=== PATIENT | female | born 1990 | race Caucasian/White ===

== ENCOUNTER → 2016-04-29 | Outpatient (CLI) | payer BC, OTHER | END | disposition home or self-care (01) | LOC: LABWHC1 11:44 | PROVIDERS: ATTEND Obstetrics & Gynecology | DX: Z34.80 Encounter for supervision of other normal pregnancy, unspecified trimester (principal); Z3A.00 Weeks of gestation of pregnancy not specified | CPT/HCPCS: 36415; 84702 ==

== ENCOUNTER → 2016-05-01 | Outpatient (CLI) | payer BC, OTHER | END | disposition home or self-care (01) | LOC: LABWHC1 12:54 | PROVIDERS: ATTEND Obstetrics & Gynecology | DX: Z34.90 Encounter for supervision of normal pregnancy, unspecified, unspecified trimester (principal); Z3A.00 Weeks of gestation of pregnancy not specified | CPT/HCPCS: 36415; 84702 ==

== ENCOUNTER → 2016-05-12 | Outpatient (CLI) | payer BC, OTHER ==
--- NOTE | 2016-05-12 15:50 | US ---
EXAMINATION TYPE: US OB <=14 wks transvag DATE OF EXAM: 05/12/2016 3:34 PM COMPARISON: NONE CLINICAL HISTORY: Z36 CONFIRM DATES. EXAM PERFORMED: Transvaginal (TV) and Transabdominal (TA) EXAM MEASUREMENTS: GESTATIONAL AGE / DATING Physician Established: Not established Dates by LMP: ( 8 weeks/0 days) EDC: 12/22/2016 Dates by First Scan: (today Dates by Current Scan for: ( 7 weeks/4 days) EDC: 12/25/2016 MATERNAL ANATOMY Uterus: 11.6 x 5.8 x 5.8cm Right Ovary: 3.5 x 3.3 x 2.6cm Left Ovary: 2.9 x 2.4 x 2.1cm Post CDS / Adnexa: wnl Presence of free fluid: no Presence of corpus luteal cyst: in right ovary = 2.2 x 2.4 x 1.4cm Presence of subchorionic bleed: complex area noted inferior subchorion = 1.2 x 1.9 x 0.5cm GESTATION / SURVEY CRL: 1.3cm (7 weeks/4 days) Yolk Sac (normal less than 6mm): 2.8mm Heart Rate: 151 bpm Rhythm: Normal IUP: Viable IUP Date of LMP: 03/17/2016 Beta HcG (if available): NA IMPRESSION: Single, live IUP, 7 weeks/4 days), EDC: 12/25/2016, HR 151bpm; possible JUHI inferior g estational sac.
[2016-05-12 16:13] LABS: CH 31.1; HCT 41.3 % (34.0-46.0); HDW 2.18; HGB 13.8 gm/dL (11.4-16.0); MCH 30.8 pg (25.0-35.0); MCHC 33.5 g/dL (31.0-37.0); MCV 91.8 fL (80.0-100.0); Mean Platelet Volume 7.4; RDW 12.1 % (11.5-15.5); WBC 15.3 k/uL (3.8-10.6)
[2016-05-12 16:19] LABS: Glucose 81 mg/dL (74-99); Non-African American GFR(MDRD) >60 (>60 ml/min/1.73 sqM)
[2016-05-12 16:50] LABS: Hepatitis B Surface Ag Index 0.09
[2016-05-13 03:56] LABS: Toxoplasma Antibody (IgG) <3.0 IU/mL (<7.2)
[2016-05-13 06:48] LABS: HIV-1/HIV-2 Ab Screen NONREAC (NON REAC)
== END | disposition home or self-care (01) ==
LOC: RADUSWWP 14:53
PROVIDERS: ATTEND Obstetrics & Gynecology
DX: Z36 Encounter for antenatal screening of mother (principal); Z3A.01 Less than 8 weeks gestation of pregnancy
CPT/HCPCS: 36415; 76801; 76817; 82565; 82947; 85027; 86762; 86777; 86778; 86780; 86850; 86900; 86901; 87340; 87389

== ENCOUNTER → 2016-08-05 | Outpatient (CLI) | payer OTHER ==
--- NOTE | 2016-08-05 14:28 | US ---
EXAMINATION TYPE: US OB anatomy transabd DATE OF EXAM: 08/05/2016 2:11 PM COMPARISON: First trimester ultrasound May 12, 2016. HISTORY: Z36 F/U to abnormal ultrasound in office TECHNIQUE: Transabdominal (TA) EXAM MEASUREMENTS: GESTATIONAL AGE / DATING Physician Established: (20 weeks/1 days) EDC: 12/22/2016 Dates by LMP: (20 weeks/1 days) EDC: 12/22/2016 Dates by First Scan: (19 weeks/5 days) EDC: 12/25/2016 Dates by Current Scan for: (19 weeks/6 days) EDC: 12/24/2016 SURVEY IUP: Single PLACENTA: Posterior PREVIA: No previa [place]: 14.3 cm Normal CERVICAL LENGTH (transabdominal: norm > 3.0cm): 4.9 cm BIOMETRY PRESENTATION: Vertex BPD: 4.5 cm 19 weeks / 4 days HC: 16.7 cm 19 weeks / 3 days AC: 15.3 cm 20 weeks / 4 days FL: 3.4 cm 20 weeks / 4 days ESTIMATED WEIGHT IN GRAMS: 350 grams ESTIMATED WEIGHT IN LBS/OZS: 0 lbs. 12 oz. WEIGHT PERCENTAGE BASED ON ESTABLISHED DATE: 59 % HC/AC: 1.1 Normal FL/AC: 22 Normal HEART RATE: 152 bpm RHYTHM: Normal ANATOMY SEEN (within normal limits): * Lateral Vent (< 1 cm) 0.7 cm * Cisterna Magna (< 1.1 cm) 0.4 cm * Nuchal Fold (< 0.6 cm) 0.3 cm * Cerebellum (varies with age) 1.9 cm Choroid Plexus (bilateral) Midline Falx Cavus Septi Pellucidi Four Chamber Heart Outflow tracts: LVOT/RVOT Stomach Situs Nose / Lips Diaphragm Kidneys (bilateral) Bladder Cord Insert Three Vessel Cord Longitudinal Spine Transverse Spine Arms (bilateral) Legs (bilateral) Single live intrauterine gestation is redemonstrated. Normal cephalad presentation to fetus is curren tly identified. there is no ultrasound evidence for placenta previa. Amniotic fluid index is within normal limits. biometry measurements are concordant felt within normal limits . Detailed anatom ical survey shows no suspicious abnormality during real-time scanning and still images saved IMPRESSION: As above.
== END | disposition home or self-care (01) ==
LOC: RADUSWWP 13:35
PROVIDERS: ATTEND Obstetrics & Gynecology
DX: Z36 Encounter for antenatal screening of mother (principal); Z3A.20 20 weeks gestation of pregnancy
CPT/HCPCS: 76811

== ENCOUNTER → 2016-10-17 | Outpatient (CLI) | payer BC, OTHER ==
[2016-10-17 13:19] LABS: CH 30.6; HDW 2.64; HGB 12.3 gm/dL (11.4-16.0); MCH 31.7 pg (25.0-35.0); MCHC 35.1 g/dL (31.0-37.0); MCV 90.4 fL (80.0-100.0); Mean Platelet Volume 6.9; RBC 3.87 m/uL (3.80-5.40); RDW 12.8 % (11.5-15.5); WBC 14.5 k/uL (3.8-10.6)
== END | disposition home or self-care (01) ==
LOC: LABWHC1 11:59
PROVIDERS: ATTEND Obstetrics & Gynecology
DX: Z34.82 Encounter for supervision of other normal pregnancy, second trimester (principal); Z3A.00 Weeks of gestation of pregnancy not specified
CPT/HCPCS: 36415; 82950; 85027

== ENCOUNTER → 2016-10-23 | Outpatient (CLI) | payer OTHER ==
[2016-10-23 12:05] LABS: Glucose 3 Hour, Gest 106 mg/dL
== END | disposition home or self-care (01) ==
LOC: LABWHC1 07:54
PROVIDERS: ATTEND Obstetrics & Gynecology
DX: O24.419 Gestational diabetes mellitus in pregnancy, unspecified control (principal); Z3A.00 Weeks of gestation of pregnancy not specified
CPT/HCPCS: 36415; 82951; 82952

== ENCOUNTER 2016-10-29 11:38 | Outpatient (CLI) | payer OTHER ==
[2016-10-29 11:46] VITALS: BP 113/63; PULSE 116; RESP 16; TEMP 97.9
--- NOTE | 2016-11-25 11:08 | P.MSEPDOC ---
Presenting Problems - Arrival Data Date of Arrival on Unit: 10/29/16 Time of Arrival on Unit: 11:35 Mode of Transport: Ambulatory - Complaint OB-Reason for Admission/Chief Complaint: Pain Comment: pelvic pain Medical History - Information : 3 Para: 2 Term: 2 : 0 Abortions: Spontaneous or Elective: 0 Number of Living Children: 2 - Gestational Age Expected Date of Delivery: 12/22/16 Gestational Age by ARJUN (wks/days): 36 Weeks and 1 Days - History Complications: Prior Review of Systems - Review of Systems Constitutional: No problems Breast: No problems ENT: No problems Cardiovascular: No problems Respiratory: No problems Gastrointestinal: No problems Genitourinary: No problems Musculoskeletal: No problems Neurological: No problems Skin: No problems Vital Signs - Temperature Temperature: 97.9 F Temperature Source: Oral - Pulse Right Sitting Brachial Pulse Rate: 116 Pulse Assessment Method: Automatic Cuff - Respirations Respiratory Rate: 16 Oxygen Delivery Method: Room Air O2 Sat by Pulse Oximetry: 97 - Blood Pressure Right Arm Sitting Blood Pressure: 113/63 Blood Pressure Mean: 79 Blood Pressure Source: Automatic Cuff Medical Screen Scoring (Pre) - Cervical Exam Dilation: Exam Deferred Effacement: Exam Deferred Membranes: Intact - Uterine Contractions Frequency: N/A Duration: N/A Intensity: N/A - Maternal Vital Signs Maternal Temperature: N/A Maternal Blood Pressure: N/A Signs of Preeclampsia: N/A Maternal Respirations: N/A - Maternal Trauma Maternal Trauma: N/A - Assessment Baseline FHR: 130 Heart Rate - NICHD Category: Category I (Normal) = 0 - Total Score Total Score (Pre): 0 - Level of Risk Level of Risk: Low (0-5) Medical Screen Scoring (Post) - Cervical Exam Dilation: 1-3 cm = 1 Membranes: Intact - Uterine Contractions Frequency: N/A - Total Score Total Score (Post): 1 Physician Notification (Post) - Physician Notified Physician Notified Date: 10/29/16 Physician Notified Time: 12:10 Physician/Practitioner Notified:: dr Watson Spoke With: dr Watson New Order Received: Yes - Notification Comment Comment: Discharge home. follow up with Dr Miles as scheduled. Disposition - Disposition OB Disposition: Discharge to home Discharge Date: 10/29/16 Discharge Time: 12:15 I agree with the RN Medical Screening Exam: Yes Risk & Benefit of care provided described in d/c instruction: Yes Diagnosis: FALSE LABOR BEFORE 37 COMPLETED WEEKS OF GEST, THIRD TRI
== END 2016-10-29 12:15 | disposition home or self-care (01) ==
LOC: FBPOP 11:38
PROVIDERS: ATTEND Obstetrics & Gynecology
DX: O47.03 False labor before 37 completed weeks of gestation, third trimester (principal); Z3A.36 36 weeks gestation of pregnancy
CPT/HCPCS: 59025; G0463; 99213

== ENCOUNTER 2016-12-17 06:04 | Inpatient (IN) | payer BC, OTHER ==
[2016-12-15 13:55] VITALS: BMI 42.4
[2016-12-17] MEDS ORDERED: CITRIC ACID-SODIUM CITRATE 15 ML CUP PO ONE (06:10)
[2016-12-17] MEDS ORDERED: ceFAZolin 2 GM in SODIUM CHLORIDE 0.9% 100 ML IVPB ONE (06:10)
[2016-12-17] MEDS ORDERED: LACTATED RINGERS 1,000 ML IV ONE (06:10)
[2016-12-17] MEDS: LACTATED RINGERS 1,000 ML IV SCH ×5 (06:23→20:54)
[2016-12-17 06:41] LABS: Basophils % (A) 0 %; CH 31.1; CHCM 34.7; Eosinophils # (A) 0.2 k/uL (0-0.7); Eosinophils % (A) 1 %; HCT 40.4 % (34.0-46.0); HDW 2.66; HGB 13.6 gm/dL (11.4-16.0); Luc # (Auto) 0.24; Luc % (Auto) 2; Lymphocytes # (A) 2.8 k/uL (1.0-4.8); Lymphocytes % (A) 17 %; MCH 30.5 pg (25.0-35.0); MCHC 33.8 g/dL (31.0-37.0); MCV 90.4 fL (80.0-100.0); Mean Platelet Volume 8.3; Monocytes # (A) 0.7 k/uL (0-1.0); Monocytes % (A) 4 %; Neutrophils # (A) 12.4 k/uL (1.3-7.7); Neutrophils % (A) 76 %; RBC 4.47 m/uL (3.80-5.40); RDW 14.7 % (11.5-15.5); WBC 16.4 k/uL (3.8-10.6); WBC (Perox) 16.63
[2016-12-17] MEDS ORDERED: MORPHINE SULFATE (PF) 0.3 MG/0.3 ML SYR ONE (07:55)
[2016-12-17] MEDS ORDERED: ONDANSETRON 4 MG/2 ML VIAL ONE (07:55)
[2016-12-17] MEDS ORDERED: PHENYLEPHRINE-0.9% NACL SYG 1 MG/10 ML SYRINGE ONE (07:55)
[2016-12-17] MEDS ORDERED: ePHEDrine SULFATE/0.9% NACL/PF 50 MG/5 ML SYRINGE IV ONE (07:55)
[2016-12-17] MEDS ORDERED: NALBUPHINE 10 MG/ML AMPUL ONE (07:55)
[2016-12-17] MEDS ORDERED: OXYTOCIN 10 UNIT/ML 1 ML VIAL ONE (07:55)
[2016-12-17] MEDS ORDERED: LANOLIN CREAM 5 GM TUBE TOPICAL PRN (08:50)
[2016-12-17] MEDS ORDERED: METOCLOPRAMIDE 5 MG/ML 2 ML VIAL IVP PRN (08:50)
[2016-12-17] MEDS ORDERED: KETOROLAC 30 MG/ML 1 ML VIAL IVP PRN (08:50)
[2016-12-17] MEDS ORDERED: ZOLPIDEM 5 MG TAB PO PRN (08:50)
[2016-12-17] MEDS ORDERED: diphenhydrAMINE 50 MG/ML 1 ML VIAL IVP PRN ×3 (08:50→10:08)
[2016-12-17] MEDS ORDERED: ACETAMINOPHEN TAB 325 MG TAB PO PRN (08:50)
[2016-12-17] MEDS ORDERED: diphenhydrAMINE 50 MG CAP PO PRN (08:50)
[2016-12-17] MEDS ORDERED: NALOXONE 0.4 MG/ML 1 ML VIAL IV PRN ×2 (08:50→10:08)
[2016-12-17] MEDS ORDERED: ONDANSETRON 4 MG/2 ML VIAL IVP PRN ×2 (08:50→10:08)
[2016-12-17] MEDS ORDERED: diphenhydrAMINE 25 MG CAP PO PRN (08:50)
[2016-12-17] MEDS ORDERED: HYDROcodone/APAP 5-325MG 1 EACH TAB PO PRN (08:51)
[2016-12-17] MEDS ORDERED: OXYTOCIN 20 UNITS/1000 ML NS 1,000 ML IV SCH (09:00)
--- NOTE | 2016-12-17 12:38 | P.HPOB ---
History of Present Illness H&P Date: 12/17/16 Chief Complaint: Repeat Low Transverse with Tubal Ligation 26 year old presents at 39 weeks 2 days for Repeat Low Transverse c- section with Tubal Ligation. Review of Systems All systems: negative Constitutional: Denies chills, Denies fever Eyes: denies blurred vision, denies pain Ears, nose, mouth and throat: Denies headache, Denies sore throat Cardiovascular: Denies chest pain, Denies shortness of breath Respiratory: Denies cough Gastrointestinal: Denies abdominal pain, Denies diarrhea, Denies nausea, Denies vomiting Genitourinary: Denies dysuria, Denies hematuria Musculoskeletal: Denies myalgias Integumentary: Denies pruritus, Denies rash Neurological: Denies numbness, Denies weakness Psychiatric: Denies anxiety, Denies depression Endocrine: Denies fatigue, Denies weight change Past Medical History Past Medical History: GERD/Reflux, Skin Disorder Additional Past Medical History / Comment(s): hx migraines, hx eczema. OB history: First was a section in 2009, second was a vaginal delivery in 2014. This is her third . She's had care with me since 8 weeks gestation. A+, antibodies negative, rubella immune, treponema antibody negative, HIV nonreactive, toxoplasmosis negative, hepatitis B negative. Failed 1 hour glucose tolerance test normal three-hour. GBS negative. History of Any Multi-Drug Resistant Organisms: MRSA Date of last positivie culture/infection: 07/08/15 MDRO Source:: buttock Past Surgical History: Section Additional Past Surgical History / Comment(s): oral surgery Past Anesthesia/Blood Transfusion Reactions: Motion Sickness Past Psychological History: No Psychological Hx Reported Smoking Status: Former smoker Past Alcohol Use History: Occasional Additional Past Alcohol Use History / Comment(s): quit smoking 04/2016, smoked on and off for yrs, started smoking age 15 Past Drug Use History: None Reported - Past Family History Mother Family Medical History: Hypertension, Thyroid Disorder Medications and Allergies Home Medications Medication Instructions Recorded Confirmed Type Pnv No.95/Ferrous Fum/Folic AC 1 each PO DAILY 10/29/16 12/17/16 History [ Multivitamin Tablet] Allergies Allergy/AdvReac Type Severity Reaction Status Date / Time codeine AdvReac Nausea Verified 12/17/16 06:10 ,itchinig Exam Osteopathic Statement: *. No significant issues noted on an osteopathic structural exam other than those noted in the History and Physical/Consult. - Vital Signs Vital signs: Vital Signs Temp Pulse Resp BP Pulse Ox 12/17/16 10:46 101 H 16 100/61 12/17/16 10:16 104 H 16 106/56 95 12/17/16 10:08 95 12/17/16 09:46 97.3 F L 100 16 126/57 95 12/17/16 09:31 100 18 148/76 95 12/17/16 09:16 107 H 16 140/70 97 12/17/16 09:01 97.9 F 102 H 18 103/51 99 12/17/16 08:46 105 H 18 108/55 100 12/17/16 06:23 97.6 F 137 H 18 135/73 98 Intake and Output 12/16/16 12/17/16 12/17/16 22:59 06:59 14:59 Output Total 600 Balance -600 Output: Estimated Blood Loss 600 Other: Weight 112.037 kg Patient Weight 12/18/16 06:59 Weight 112.037 kg Heart: Regular rate and rhythm Lungs: Clear to auscultation bilaterally Abdomen: Soft, nontender Extremities: Negative Homans sign Results Result Diagrams: 12/17/16 06:26 Abnormal Lab Results - Last 24 Hours (Table) 12/17/16 Range/Units 06:26 WBC 16.4 H (3.8-10.6) k/uL Neutrophils # 12.4 H (1.3-7.7) k/uL Assessment and Plan (1) Previous section Status: Acute (2) Family planning Status: Acute Plan: 1. Repeat low transverse with tubal ligation.
--- NOTE | 2016-12-17 12:42 | P.OP ---
Date of Procedure: 12/17/16 Preoperative Diagnosis: 1. at 39 weeks and 2 days 2. Previous section 3. Family planning Postoperative Diagnosis: 1. at 39 weeks and 2 days 2. Previous section 3. Family planning Procedure(s) Performed: Repeat Low Transverse with tubal ligation Anesthesia: spinal Surgeon: Shelby Miles Veneer Measurer #1: Kathe Kaba Estimated Blood Loss (ml): 600 IV fluids (ml): 700 Urine output (ml): 100 Pathology: other (placenta) Condition: stable Disposition: floor Operative Findings: viable female, 8,9 weight, 8#8oz Description of Procedure: Patient was taken to the operating room where spinal anesthesia was found be adequate. She was prepped and draped in normal sterile fashion in dorsal supine position with a leftward tilt. Pfannenstiel skin incision was made the scalpel and carried through to the underlying layer of fascia with the scalpel. Fascia was incised in midline and carried bilaterally with the Desouza scissors. The superior aspect of the fascial incision was grasped with Ayanna clamps elevated and the underlying rectus muscles dissected off with the Desouza's. Attention was then turned to inferior aspect of same incision which in a similar fashion was grasped tented up and the underlying rectus muscles dissected off with the Desouza's. The rectus muscles were the midline and the peritoneum was identified tented up and entered sharply with the scalpel. The incision was extended superiorly and inferiorly with good visualization of the bladder. The bladder blade was inserted and the vesicouterine peritoneum was incised the Metzenbaums then carried bilaterally and bladder flap created digitally. A low transverse incision was then made on the uterus with the scalpel. This was carried bilaterally and digital manner. 's head delivered atraumatically, nose and mouth bulb suctioned, cord clamped and cut, infant handed off to waiting nurses. Apgars 8,9, weight 8 lbs. 8 oz. Placenta delivered manually, intact with three-vessel cord. The uterus is exteriorized and cleared of all clots and debris. The uterine incision was closed with 0 Vicryl in a running locked fashion. Bladder flap was then reapproximated using 2-0 Vicryl in a running fashion. Both ovaries and tubes appeared normal. The left fallopian tube was grasped with a hemostat and a window was made in the mesosalpinx. The left fallopian tube was doubly ligated and a portion was removed. The pedicles were cauterized with the Bovie. The right fallopian tube was grasped with a hemostat and a window was made in the mesosalpinx. The right fallopian tube was doubly ligated and a portion was removed. The pedicles were cauterized with the Bovie. The uterus was placed back into the abdomen. The peritoneum was reapproximated using 2-0 Vicryl in a running fashion. The muscles were reapproximated using 2-0 Vicryl in interrupted fashion. The fascia was reapproximated using 0 Vicryl in a running fashion. The subcutaneous tissues closed with 3-0 Vicryl running fashion. The skin was closed rodríguez. Patient tolerated the procedure well, sponge and instrument counts were correct times 2 and she was taken to the recovery room in stable condition.
[2016-12-17] MEDS ORDERED: ONDANSETRON ODT 4 MG TAB PO PRN (17:37)
[2016-12-17] MEDS: SENNOSIDES-DOCUSATE SODIUM 1 EACH TAB PO SCH (20:28)
[2016-12-17] MEDS: IBUPROFEN 600 MG TAB PO PRN (23:09)
[2016-12-18] MEDS: HYDROcodone/APAP 5-325MG 1 EACH TAB PO PRN ×3 (05:32→21:50)
[2016-12-18 08:03] LABS: Basophils % (A) 0 %; CH 31.1; CHCM 34.7; Eosinophils # (A) 0.1 k/uL (0-0.7); Eosinophils % (A) 1 %; HCT 34.5 % (34.0-46.0); HGB 11.7 gm/dL (11.4-16.0); Luc # (Auto) 0.27; Luc % (Auto) 2; Lymphocytes % (A) 15 %; MCH 30.4 pg (25.0-35.0); MCHC 33.8 g/dL (31.0-37.0); Monocytes # (A) 0.7 k/uL (0-1.0); Monocytes % (A) 5 %; Neutrophils # (A) 10.2 k/uL (1.3-7.7); Neutrophils % (A) 76 %; RBC 3.83 m/uL (3.80-5.40); RDW 14.3 % (11.5-15.5); WBC 13.3 k/uL (3.8-10.6); WBC (Perox) 14.23
--- NOTE | 2016-12-18 08:23 | P.PNOBGPC ---
Subjective - Subjective Principal diagnosis: S/P RLTCS with TL POD #1 Interval history: Recent seen and examined. Denies nausea, vomiting, chest pain, shortness of breath or calf pain. Patient reports: Reports appetite normal, Reports voiding normally, Reports pain well controlled, Reports ambulating normally [place]: doing well Objective - Vital Signs Latest vital signs: Vital Signs Temp Pulse Resp BP Pulse Ox 12/18/16 04:00 98.2 F 80 18 105/60 99 12/18/16 00:00 98.8 F 85 18 110/65 98 12/17/16 20:00 97.8 F 96 18 130/80 100 12/17/16 16:50 97.5 F L 98 16 121/70 99 12/17/16 14:00 98.2 F 92 16 127/75 95 12/17/16 11:08 95 12/17/16 10:46 101 H 16 100/61 12/17/16 10:16 104 H 16 106/56 95 12/17/16 10:08 95 12/17/16 09:46 97.3 F L 100 16 126/57 95 12/17/16 09:31 100 18 148/76 95 12/17/16 09:16 107 H 16 140/70 97 12/17/16 09:01 97.9 F 102 H 18 103/51 99 12/17/16 08:46 105 H 18 108/55 100 Intake and Output 12/17/16 12/18/16 12/18/16 22:59 06:59 14:59 Intake Total 700 Output Total 300 Balance 400 Intake: Intake, IV Titration 700 Amount Oxytocin 20 Units/1000 ml 700 Ns 1,000 ml @ Per Protocol IV .Q0M [facility] Rx#: [id number] Output: Urine 300 - Exam Lungs: bilateral: normal Chest: Normal S1, Normal S2 Extremities: Present: normal Abdomen: Present: normal appearance, soft. Absent: distention, tenderness Incision: Present: normal, dry, intact Uterus: Present: normal, firm - Labs Labs: Abnormal Lab Results - Last 24 Hours (Table) 12/18/16 Range/Units 07:45 WBC 13.3 H (3.8-10.6) k/uL Neutrophils # 10.2 H (1.3-7.7) k/uL Assessment and Plan (1) Previous section Current Visit: No Status: Resolved Code(s): Z98.89 - OTHER SPECIFIED POSTPROCEDURAL STATES * DO NOT USE * SNOMED Code(s): 576323841 (2) Family planning Current Visit: Yes Status: Resolved Code(s): Z30.09 - ENCOUNTER FOR OTH GENERAL CNSL AND ADVICE ON CONTRACEPTION SNOMED Code(s): 59378697 (3) Status post repeat low transverse section Narrative/Plan: 1. Increase ambulation 2. Pain control 3. Continue postoperative care Current Visit: Yes Status: Acute Code(s): Z98.891 - HISTORY OF UTERINE SCAR FROM PREVIOUS SURGERY SNOMED Code(s): 649365213 (4) Status post tubal ligation at time of delivery, current hosp Current Visit: Yes Status: Acute Code(s): O80 - ENCOUNTER FOR FULL-TERM UNCOMPLICATED DELIVERY; Z30.2 - ENCOUNTER FOR STERILIZATION SNOMED Code(s): 330353400
[2016-12-18] MEDS: SENNOSIDES-DOCUSATE SODIUM 1 EACH TAB PO SCH ×2 (08:41→20:17)
[2016-12-18] MEDS: IBUPROFEN 600 MG TAB PO PRN ×2 (08:41→17:50)
--- NOTE | 2016-12-18 09:25 | P.PN ---
Progress Note - Text Postoperative day 1 status post section under spinal anesthesia, and intrathecal morphine given for postoperative analgesia, patient doing well, there is no anesthesia related complications, further management as per her primary team
[2016-12-18 16:07] VITALS: RESP 16
[2016-12-18] MEDS: SIMETHICONE 80 MG CHEWABLE PO PRN (20:22)
[2016-12-19] MEDS: IBUPROFEN 600 MG TAB PO PRN ×3 (02:54→21:42)
--- NOTE | 2016-12-19 06:01 | P.PNOBGPC ---
Subjective - Subjective Patient reports: Reports appetite normal, Reports voiding normally, Reports pain well controlled, Reports ambulating normally : doing well Objective - Vital Signs Latest vital signs: Vital Signs Temp Pulse Resp BP Pulse Ox 12/19/16 00:00 98.6 F 88 16 109/62 12/18/16 16:00 98 F 106 H 16 113/76 12/18/16 08:00 98.5 F 101 H 20 98/57 98 - Exam Lungs: bilateral: normal Chest: Normal S1, Normal S2 Extremities: Present: normal Abdomen: Present: normal appearance, soft. Absent: distention, tenderness Incision: Present: normal, dry, intact Uterus: Present: normal, firm - Labs Labs: Abnormal Lab Results - Last 24 Hours (Table) 12/18/16 Range/Units 07:45 WBC 13.3 H (3.8-10.6) k/uL Neutrophils # 10.2 H (1.3-7.7) k/uL Assessment and Plan (1) Status post repeat low transverse section Narrative/Plan: Post operative day #2. Patient is resting without complaints. Vital signs are stable and she is afebrile. Uterus is firm nontender and her incision is intact and dry. CBC from yesterday is normal. My impression is this is a normal course. Patient is tolerating regular diet and ambulating, and urinating without difficulty. Plan today is to continue routine postoperative care most likely discharge home tomorrow. Current Visit: Yes Status: Acute Code(s): Z98.891 - HISTORY OF UTERINE SCAR FROM PREVIOUS SURGERY SNOMED Code(s): 652331703
[2016-12-19] MEDS: SIMETHICONE 80 MG CHEWABLE PO PRN ×2 (08:06→12:16)
[2016-12-19] MEDS: SENNOSIDES-DOCUSATE SODIUM 1 EACH TAB PO SCH ×2 (08:06→22:48)
[2016-12-19] MEDS: HYDROcodone/APAP 5-325MG 1 EACH TAB PO PRN ×2 (08:07→18:35)
[2016-12-19] MEDS: LACTATED RINGERS 1,000 ML IV SCH (22:49)
[2016-12-20] MEDS: HYDROcodone/APAP 5-325MG 1 EACH TAB PO PRN ×2 (00:49→06:46)
[2016-12-20] MEDS: IBUPROFEN 600 MG TAB PO PRN ×2 (03:44→10:41)
--- NOTE | 2016-12-20 05:38 | P.PNOBGPC ---
Subjective - Subjective Patient reports: Reports appetite normal, Reports voiding normally, Reports pain well controlled, Reports ambulating normally : doing well Objective - Vital Signs Latest vital signs: Vital Signs Temp Pulse Resp BP 12/20/16 00:00 97.9 F 78 16 125/71 12/19/16 16:00 98.7 F 92 16 101/57 12/19/16 08:00 97.7 F 84 16 90/54 Intake and Output 12/19/16 12/19/16 12/20/16 14:59 22:59 06:59 Other: # Voids 2 - Exam Lungs: bilateral: normal Chest: Normal S1, Normal S2 Extremities: Present: normal Abdomen: Present: normal appearance, soft. Absent: distention, tenderness Incision: Present: normal, dry, intact Uterus: Present: normal, firm Assessment and Plan (1) Status post repeat low transverse section Narrative/Plan: Post operative day #3. Patient is resting without complaints. Vital signs are stable she's afebrile. Uterus is firm nontender she's having normal lochia. My impression is that this is a normal course. Plan is to continue routine care discharge home Current Visit: Yes Status: Acute Code(s): Z98.891 - HISTORY OF UTERINE SCAR FROM PREVIOUS SURGERY SNOMED Code(s): 426705512
--- NOTE | 2016-12-20 05:41 | P.DS ---
Providers Date of admission: 12/17/16 06:04 Expected date of discharge: 12/20/16 Attending physician: Shelby Miles Primary care physician: Stated None - Discharge Diagnosis(es) (1) Status post repeat low transverse section Current Visit: Yes Status: Acute Hospital Course: Please see dictated H&P for intimate details of this patient's admission. Brief summary is a pleasant 26-year-old 3 para 2 female 39-2/7 weeks gestation admitted by Dr. Miles for elective repeat section and tubal ligation. Patient is admitted undergoes above-named surgery. Please see dictated operative note. By postoperative 3 patient's felt be stable for discharge home follow up with Dr. Miles in 1 week. Procedures: Repeat low transverse section and bilateral partial salpingectomy. Patient Condition at Discharge: Good Plan - Discharge Summary New Discharge Prescriptions: New HYDROcodone/APAP 5-325MG [[place] 5-325] 1 - 2 each PO Q4HR PRN #40 tab PRN Reason: Pain Ibuprofen [Motrin] 600 mg PO Q6HR PRN #40 tab PRN Reason: Mild Pain Or Fever >= 100.5 No Action Pnv No.95/Ferrous Fum/Folic AC [ Multivitamin Tablet] 1 each PO DAILY Discharge Medication List Pnv No.95/Ferrous Fum/Folic AC [ Multivitamin Tablet] 1 each PO DAILY [History] HYDROcodone/APAP 5-325MG [[place] 5-325] 1 - 2 each PO Q4HR PRN #40 tab 12/19/16 [ Rx] Ibuprofen [Motrin] 600 mg PO Q6HR PRN #40 tab 12/19/16 [Rx] Follow up Appointment(s)/Referral(s): Shelby Miles DO [Doctor of Osteopathic Medicine] - 12/25/16 1:30 pm ( Patient also has a appointment with Dr. Miles on January 29 at 10: 45 AM.) Patient Instructions/Handouts: (DC) Activity/Diet/Wound Care/Special Instructions: No heavy lifting or strenuous activity for 6 weeks. No intercourse or anything per vagina for 6 weeks. Please call if any fever, chills, excessive vaginal bleeding, and/or abdominal pain. Discharge Disposition: HOME SELF-CARE
[2016-12-20 08:36] VITALS: BP 140/72; PULSE 88; TEMP 98.4
[2016-12-20] MEDS: SENNOSIDES-DOCUSATE SODIUM 1 EACH TAB PO SCH (08:54)
== END 2016-12-20 12:40 | disposition home or self-care (01) | DRG 765 ==
LOC: 4FBP 06:04
PROVIDERS: ADMIT Obstetrics & Gynecology; ATTEND Obstetrics & Gynecology
PROC: 0UB70ZZ Excision of Bilateral Fallopian Tubes, Open Approach (ICD-10-PCS; 2016-12-17)
PROC: 10D00Z1 Extraction of Products of Conception, Low, Open Approach (ICD-10-PCS; principal; 2016-12-17 08:00)
DX: O34.211 Maternal care for low transverse scar from previous cesarean delivery (principal); O99.354 Diseases of the nervous system complicating childbirth; O99.62 Diseases of the digestive system complicating childbirth; K21.9 Gastro-esophageal reflux disease without esophagitis; O99.72 Diseases of the skin and subcutaneous tissue complicating childbirth; G43.909 Migraine, unspecified, not intractable, without status migrainosus; L30.9 Dermatitis, unspecified; Z37.0 Single live birth; Z87.891 Personal history of nicotine dependence; Z86.14 Personal history of Methicillin resistant Staphylococcus aureus infection; Z88.5 Allergy status to narcotic agent; Z3A.39 39 weeks gestation of pregnancy; Z82.49 Family history of ischemic heart disease and other diseases of the circulatory system
CPT/HCPCS: 85025; 86850; 86900; 86901; 88302; 88307

== ENCOUNTER → 2018-07-14 | Outpatient (CLI) | payer BC, OTHER ==
--- NOTE | 2018-07-15 09:32 | USB ---
Reason for exam: clinical finding. Indicated problem(s): pain in the left breast. Physical Findings: Nurse Summary: x 2 BB's at 1 o'clock and 4 o'clock (nurse shannon). US Breast BILAT Right complete breast ultrasound includes all four quadrants, the retroareolar region and axilla. Finding demonstrates no cystic or solid lesion seen. Left complete breast ultrasound includes all four quadrants, the retroareolar region and axilla. Finding demonstrates no cystic or solid lesion seen. No suspicious sonographic finding. These results were verbally communicated with the patient and result sheet given to the patient on 07/14/18. ASSESSMENT: Negative, BI-RAD 1 RECOMMENDATION: Routine screening mammogram of both breasts at age 40. 40 or sooner if clinically indicated. Manage patient on a clinical basis.
== END | disposition home or self-care (01) ==
LOC: RADUSWWP 14:16
PROVIDERS: ATTEND Obstetrics & Gynecology
DX: N64.4 Mastodynia (principal); Z80.3 Family history of malignant neoplasm of breast

== ENCOUNTER 2019-01-21 08:39 | Emergency (ER) | payer BC, OTHER ==
[2019-01-21] MEDS ORDERED: KETOROLAC 30 MG/ML 1 ML VIAL IVP STA (09:07)
[2019-01-21] MEDS ORDERED: ONDANSETRON 4 MG/2 ML VIAL IVP STA (09:07)
[2019-01-21] MEDS ORDERED: SODIUM CHLORIDE 0.9% 1,000 ML IV STA ×2 (09:07)
[2019-01-21] MEDS ORDERED: PANTOPRAZOLE 40 MG/10 ML VIAL IVP STA (09:07)
--- NOTE | 2019-01-21 09:11 | ED ---
Abdominal Pain HPI - General Chief Complaint: Abdominal Pain Stated Complaint: back & esophageal pain Time Seen by Provider: 01/21/19 08:48 Source: patient, RN notes reviewed, old records reviewed Mode of arrival: ambulatory Limitations: no limitations - History of Present Illness Initial Comments: 28-year-old female presents emergency department today for evaluation for 3 days of epigastric abdominal pain radiation towards her back. Patient reports that symptoms started into the evening last night to be worse. 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 Patient states that she's had a few episodes of vomiting. She reports she's tried taking some medications but that has not relieved her pain. She reports the pain seems to be colicky and cramping in nature. Patient states that she has a strong family history of gallbladder disease. Surgical history includes tubal ligation and C-sections. - Related Data Home Medications Medication Instructions Recorded Confirmed Dextroamphetamine/Amphetamine 30 mg PO DAILY 01/21/19 01/21/19 [Adderall] Ibuprofen [Motrin Ib] 400 - 600 mg PO Q6H PRN 01/21/19 01/21/19 Multivitamins, Thera [Multivitamin 1 tab PO DAILY 01/21/19 01/21/19 (formulary)] Previous Rx's Medication Instructions Recorded Ondansetron Odt [Zofran Odt] 4 mg PO Q8HR PRN #12 tab 01/21/19 Pantoprazole [Protonix] 40 mg PO DAILY #15 tablet. 01/21/19 Sucralfate [Carafate] 1 gm PO ACHS #30 tablet 01/21/19 Allergies Allergy/AdvReac Type Severity Reaction Status Date / Time codeine AdvReac Nausea Verified 01/21/19 08:52 ,itchinig Review of Systems ROS Statement: Those systems with pertinent positive or pertinent negative responses have been documented in the HPI. ROS Other: All systems not noted in ROS Statement are negative. Past Medical History Past Medical History: No Reported History Additional Past Medical History / Comment(s): hx migraines, hx eczema. OB histo ry: First was a section in 2009, second was a vaginal delivery in 2014. This is her third . She's had care with me since 8 weeks gestation. A+, antibodies negative, rubella immune, treponema antibody negative, HIV nonreactive, toxoplasmosis negative, hepatitis B negative. Failed 1 hour glucose tolerance test normal three-hour. GBS negative. History of Any Multi-Drug Resistant Organisms: MRSA Date of last positivie culture/infection: 07/08/15 MDRO Source:: left buttock 2016 Past Surgical History: Section Additional Past Surgical History / Comment(s): oral surgery Past Anesthesia/Blood Transfusion Reactions: No Reported Reaction Past Psychological History: No Psychological Hx Reported Smoking Status: Former smoker Past Alcohol Use History: None Reported Past Drug Use History: None Reported - Past Family History Mother Family Medical History: Hypertension, Thyroid Disorder General Exam - General Exam Comments Initial Comments: 28-year-old female. Alert and oriented 3. Limitations: no limitations General appearance: alert, in no apparent distress Head exam: Present: atraumatic, normocephalic, normal inspection Eye exam: Present: normal appearance, PERRL, EOMI. Absent: scleral icterus, conjunctival injection, periorbital swelling ENT exam: Present: normal exam, mucous membranes moist Neck exam: Present: normal inspection. Absent: tenderness, meningismus, lymphadenopathy Respiratory exam: Present: normal lung sounds bilaterally. Absent: respiratory distress, wheezes, rales, rhonchi, stridor Cardiovascular Exam: Present: regular rate, normal rhythm, normal heart sounds. Absent: systolic murmur, diastolic murmur, rubs, gallop, clicks GI/Abdominal exam: Present: soft, tenderness (epigastric tenderness), normal bowel sounds. Absent: distended, guarding, rebound, rigid Back exam: Present: normal inspection Neurological exam: Present: alert, oriented X3, CN II-XII intact Psychiatric exam: Present: normal affect, normal mood Skin exam: Present: warm, dry, intact, normal color Course Vital Signs 01/21/19 01/21/19 08:40 11:02 Temperature 98.3 F Pulse Rate 87 79 Respiratory 18 19 Rate Blood Pressure 127/84 94/53 O2 Sat by Pulse 98 99 Oximetry Medical Decision Making - Medical Decision Making Patient's a 28-year-old female presents 3 days of nausea, epigastric, pain Patient towards her back. Patient states it seems that she may need something wrong complaint of colicky like pain. She denies a change in urination or bowel habits. She is concerned that she's had a strong family history of gallbladder disease. At this time Patient was given IV fluids labwork obtained. She reported improvement after Toradol and Protonix and Zofran. Patient labs were reviewed and unremarkable. Due to location of pain and colicky nature discussed concern for biliary colic. Ultrasound was completed and is negative for acute gallstones or common bile duct thickening. Patient informed of possibility of gastritis or ulcer. Discussed putting the Patient on an protonic medications as well as nausea medicines. I discussed the Patient should follow-up with GI specialist as well. Patient may benefit from a HIDA scan in the future. Patient is agreeable to treatment plan will comply. Return parameters were discussed. - Lab Data Result diagrams: 01/21/19 09:25 01/21/19 09:25 Lab Results 01/21/19 01/21/19 01/21/19 Range/Units 09:25 09:25 09:25 WBC 11.3 H (3.8-10.6) k/uL RBC 4.59 (3.80-5.40) m/uL Hgb 13.8 (11.4-16.0) gm/dL Hct 42.7 (34.0-46.0) % MCV 93.0 (80.0-100.0) fL MCH 30.1 (25.0-35.0) pg MCHC 32.3 (31.0-37.0) g/dL RDW 12.4 (11.5-15.5) % Plt Count 305 (150-450) k/uL Neutrophils % 69 % Lymphocytes % 22 % Monocytes % 5 % Eosinophils % 2 % Basophils % 1 % Neutrophils # 7.9 H (1.3-7.7) k/uL Lymphocytes # 2.5 (1.0-4.8) k/uL Monocytes # 0.5 (0-1.0) k/uL Eosinophils # 0.2 (0-0.7) k/uL Basophils # 0.1 (0-0.2) k/uL PT 10.7 (9.0-12.0) sec INR 1.0 (<1.2) APTT 25.1 (22.0-30.0) sec Sodium 140 (137-145) mmol/L Potassium 4.2 (3.5-5.1) mmol/L Chloride 106 (98-107) mmol/L Carbon Dioxide 24 (22-30) mmol/L Anion Gap 10 mmol/L BUN 15 (7-17) mg/dL Creatinine 0.76 (0.52-1.04) mg/dL Est GFR (CKD-EPI)AfAm >90 (>60 ml/min/1.73 sqM) Est GFR (CKD-EPI)NonAf >90 (>60 ml/min/1.73 sqM) Glucose 76 (74-99) mg/dL Calcium 9.3 (8.4-10.2) mg/dL Total Bilirubin 0.4 (0.2-1.3) mg/dL AST 17 (14-36) U/L ALT 27 (9-52) U/L Alkaline Phosphatase 69 (38-126) U/L Total Protein 7.5 (6.3-8.2) g/dL Albumin 4.3 (3.5-5.0) g/dL Amylase 65 (30-110) U/L Lipase 278 (23-300) U/L Urine Color Urine Appearance (Clear) Urine pH (5.0-8.0) Ur Specific Jol[place] (1.001-1.035) Urine Protein (Negative) Urine Glucose (UA) (Negative) Urine Ketones (Negative) Urine Blood (Negative) Urine Nitrite (Negative) Urine Bilirubin (Negative) Urine Urobilinogen (<2.0) mg/dL Ur Leukocyte Esterase (Negative) Urine RBC (0-5) /hpf Urine WBC (0-5) /hpf Ur Squamous Epith Cells (0-4) /hpf Urine Mucus (None) /hpf 01/21/19 Range/Units 09:25 WBC (3.8-10.6) k/uL RBC (3.80-5.40) m/uL Hgb (11.4-16.0) gm/dL Hct (34.0-46.0) % MCV (80.0-100.0) fL MCH (25.0-35.0) pg MCHC (31.0-37.0) g/dL RDW (11.5-15.5) % Plt Count (150-450) k/uL Neutrophils % % Lymphocytes % % Monocytes % % Eosinophils % % Basophils % % Neutrophils # (1.3-7.7) k/uL Lymphocytes # (1.0-4.8) k/uL Monocytes # (0-1.0) k/uL Eosinophils # (0-0.7) k/uL Basophils # (0-0.2) k/uL PT (9.0-12.0) sec INR (<1.2) APTT (22.0-30.0) sec Sodium (137-145) mmol/L Potassium (3.5-5.1) mmol/L Chloride (98-107) mmol/L Carbon Dioxide (22-30) mmol/L Anion Gap mmol/L BUN (7-17) mg/dL Creatinine (0.52-1.04) mg/dL Est GFR (CKD-EPI)AfAm (>60 ml/min/1.73 sqM) Est GFR (CKD-EPI)NonAf (>60 ml/min/1.73 sqM) Glucose (74-99) mg/dL Calcium (8.4-10.2) mg/dL Total Bilirubin (0.2-1.3) mg/dL AST (14-36) U/L ALT (9-52) U/L Alkaline Phosphatase (38-126) U/L Total Protein (6.3-8.2) g/dL Albumin (3.5-5.0) g/dL Amylase (30-110) U/L Lipase (23-300) U/L Urine Color Yellow Urine Appearance Cloudy H (Clear) Urine pH 5.0 (5.0-8.0) Ur Specific [place] 1.024 (1.001-1.035) Urine Protein Negative (Negative) Urine Glucose (UA) Negative (Negative) Urine Ketones Negative (Negative) Urine Blood Small H (Negative) Urine Nitrite Negative (Negative) Urine Bilirubin Negative (Negative) Urine Urobilinogen <2.0 (<2.0) mg/dL Ur Leukocyte Esterase Negative (Negative) Urine RBC 1 (0-5) /hpf Urine WBC <1 (0-5) /hpf Ur Squamous Epith Cells 8 H (0-4) /hpf Urine Mucus Rare H (None) /hpf - Radiology Data Radiology results: report reviewed KUB shows no objective bowel gas pattern. Suspected 5 mm lower pole right renal calculus. Ultrasound is negative for any significant abnormalities. No signs of Adhikari sign or dilated common bile duct. Disposition Clinical Impression: Epigastric pain Disposition: HOME SELF-CARE Condition: Good Instructions (If sedation given, give patient instructions): Abdominal Pain (ED), Diet for Stomach Ulcers and Gastritis (ED) Additional Instructions: Please use medication as discussed. Patient should've a clear liquid or bland diet for 2 days. Patient may need a HIDA scan in the future. Please follow up with family doctor if symptoms have not improved over the next two days. Please return to the emergency room if your symptoms increase or worsen or for any other concerns. Prescriptions: Sucralfate [Carafate] 1 gm PO ACHS #30 tablet Pantoprazole [Protonix] 40 mg PO DAILY #15 tablet. Ondansetron Odt [Zofran Odt] 4 mg PO Q8HR PRN #12 tab PRN Reason: Nausea Is patient prescribed a controlled substance at d/c from ED?: No Referrals: Bentley Cline DO [Primary Care Provider] - 1-2 days Rochelle Ayala MD [STAFF PHYSICIAN] - 1-2 days Jonathan Ledezma MD [Medical Doctor] - 1-2 days Time of Disposition: 12:10
--- NOTE | 2019-01-21 10:09 | XR ---
EXAMINATION TYPE: XR KUB DATE OF EXAM: 01/21/2019 10:02 AM CLINICAL HISTORY: Right lower quadrant pain with nausea and vomiting. TECHNIQUE: Two Upright KUB images of the abdomen are obtained. COMPARISON: None. FINDINGS: Scattered gas is seen in non-distended stomach and small bowel loops. Gas and fecal materia l is seen in non-distended colon. Punctate densities throughout the bowel loops particularly colon a re presumed ingested food products. There is 5 mm lower pole right renal calculus. There is dextrocon vex scoliotic curvature centered at L2-L3 level. No pneumoperitoneum. Lung bases are clear. IMPRESSION: Overall nonobstructive bowel gas pattern. Suspected 5 mm lower pole right renal calculus.
[2019-01-21 10:30] LABS: Basophils # (A) 0.1 k/uL (0-0.2); Basophils % (A) 1 %; Eosinophils # (A) 0.2 k/uL (0-0.7); Eosinophils % (A) 2 %; HCT 42.7 % (34.0-46.0); HGB 13.8 gm/dL (11.4-16.0); Lymphocytes # (A) 2.5 k/uL (1.0-4.8); Lymphocytes % (A) 22 %; MCH 30.1 pg (25.0-35.0); MCHC 32.3 g/dL (31.0-37.0); Mean Platelet Volume 6.9; Monocytes # (A) 0.5 k/uL (0-1.0); Monocytes % (A) 5 %; Neutrophils # (A) 7.9 k/uL (1.3-7.7); Neutrophils % (A) 69 %; Platelet Count 305 k/uL (150-450); RBC 4.59 m/uL (3.80-5.40); RDW 12.4 % (11.5-15.5); WBC 11.3 k/uL (3.8-10.6)
[2019-01-21 10:39] LABS: Appearance,Urine Cloudy (Clear); Bilirubin,Urine Negative (Negative); Blood,Urine Small (Negative); Color,Urine Yellow; Glucose,Urine (UA) Negative (Negative); Ketones,Urine Negative (Negative); Leukocyte Esterase,Urine Negative (Negative); Mucus,Urine Rare /hpf; Nitrite,Urine Negative (Negative); Partial Thromboplastin Time 25.1 sec (22.0-30.0); Protein,Urine Negative (Negative); Prothrombin Time 10.7 sec (9.0-12.0); RBC,Urine 1 /hpf (0-5); Specific Gravity,Urine 1.024 (1.001-1.035); Squamous Epithelial Cell,Urine 8 /hpf (0-4); Urobilinogen,Urine <2.0 mg/dL (<2.0); WBC,Urine <1 /hpf (0-5)
[2019-01-21 10:43] LABS: ALT 27 U/L (9-52); AST 17 U/L (14-36); African American GFR (CKD) >90 (>60 ml/min/1.73 sqM); Albumin 4.3 g/dL (3.5-5.0); Alkaline Phosphatase 69 U/L (38-126); Amylase 65 U/L (30-110); Anion Gap 10 mmol/L; Blood Urea Nitrogen 15 mg/dL (7-17); Calcium 9.3 mg/dL (8.4-10.2); Carbon Dioxide 24 mmol/L (22-30); Chloride 106 mmol/L (98-107); Glucose 76 mg/dL (74-99); Potassium 4.2 mmol/L (3.5-5.1); Sodium 140 mmol/L (137-145); Total Bilirubin 0.4 mg/dL (0.2-1.3); Total Protein 7.5 g/dL (6.3-8.2)
--- NOTE | 2019-01-21 11:13 | US ---
EXAMINATION TYPE: US gallbladder DATE OF EXAM: 01/21/2019 COMPARISON: NONE CLINICAL HISTORY: RUQ pain. RUQ PAIN EXAM MEASUREMENTS: Liver Length: 16.7 cm Gallbladder Wall: .2 cm CBD: .5 cm Right Kidney: 11.1 X 4.7 X 5.7 cm There is no ascites. Upper inferior vena cava is normal as seen. Pancreas: Tail obscured by overlying bowel gas Liver: wnl Gallbladder: No stones seen Evidence for sonographic Adhikari's sign: No CBD: wnl Right Kidney: wnl and cortical. Cortical medullary differentiation is maintained. IMPRESSION: No significant abnormalities evident. Limitations as described.
[2019-01-21] MEDS ORDERED: MAG HYDROX/AL HYDROX/SIMETH 30 ML, HYOSCYAMINE ELIXIR 10 ML, LIDOCAINE VISCOUS 2% 10 ML PO STA ×3 (11:58)
[2019-01-21 12:46] VITALS: BP 98/68; PULSE 78; RESP 18; TEMP 98.2
== END 2019-01-21 12:46 | disposition home or self-care (01) ==
LOC: EC 08:39
DX: R10.13 Epigastric pain (principal); R11.2 Nausea with vomiting, unspecified; M54.9 Dorsalgia, unspecified; Z87.891 Personal history of nicotine dependence; Z88.5 Allergy status to narcotic agent; Z86.14 Personal history of Methicillin resistant Staphylococcus aureus infection; Z98.51 Tubal ligation status; Z83.79 Family history of other diseases of the digestive system
CPT/HCPCS: 36415; 80053; 82150; 83690; 85025; 85610; 85730; 81001; 74018; 76705; 99285; 96374; 96375 ×2; 96361 ×3; J2405; J1885; C9113

== ENCOUNTER → 2021-07-05 | Outpatient (CLI) | payer OTHER ==
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
== END | disposition home or self-care (01) ==
LOC: RADMRIMAIN 07:07
PROVIDERS: ATTEND Family Medicine
DX: M50.221 Other cervical disc displacement at C4-C5 level (principal); V89.2XXA Person injured in unspecified motor-vehicle accident, traffic, initial encounter
CPT/HCPCS: 72141